=== PATIENT | female | born 1950 | race Caucasian/White ===

== ENCOUNTER → 2016-05-26 08:38 | Outpatient (CLI) | payer MEDICARE, OTHER ==
[2016-03-12 09:21] VITALS: BMI 42.0
[~2016-05-26 08:38] MED LIST: AVALIDE 150-12.1 TA1 PO; CYMBALTA60 MG PO; ROPINIROLE HCL2 MG PO; TYLENOL #4 W/CO1 TAB PO; TYLENOL W/CODEI1 TAB PO
== END | disposition home or self-care (01) ==
LOC: D.CT 08:38
DX: M54.5 Low back pain (principal)

== ENCOUNTER → 2016-12-21 00:50 | Outpatient (CLI) | payer MEDICARE, OTHER ==
[2016-03-12 09:21] VITALS: BMI 42.0
[2016-12-21 02:37] LABS: CREATININE - SERUM 1.6 mg/dL (0.6-1.3); VANCOMYCIN - TROUGH 30.2 ug/mL (10.0-20.0)
== END ==
LOC: D.LABREF 00:50
PROVIDERS: Family Medicine
DX: G06.1 Intraspinal abscess and granuloma (principal)

== ENCOUNTER → 2016-12-29 18:05 | Outpatient (CLI) | payer MEDICARE, OTHER ==
[2016-03-12 09:21] VITALS: BMI 42.0
== END | disposition home or self-care (01) ==
LOC: D.LABREF 18:05
PROVIDERS: Student in an Organized Health Care Education/Training Program
DX: R50.9 Fever, unspecified (principal)

== ENCOUNTER → 2016-12-30 11:26 | Outpatient (CLI) | payer MEDICARE, OTHER ==
[2016-03-12 09:21] VITALS: BMI 42.0
== END | disposition home or self-care (01) ==
LOC: D.US 11:00
DX: M25.511 Pain in right shoulder (principal)

== ENCOUNTER → 2016-12-31 11:03 | Outpatient (CLI) | payer MEDICARE, OTHER ==
[2016-03-12 09:21] VITALS: BMI 42.0
== END | disposition home or self-care (01) ==
LOC: D.LABREF 11:03
DX: D50.9 Iron deficiency anemia, unspecified (principal); I82.621 Acute embolism and thrombosis of deep veins of right upper extremity

== ENCOUNTER 2017-01-18 12:31 | Inpatient (IN) | payer MEDICARE, OTHER ==
[~2017-01-18 12:31] MED LIST changes: +REQUIP3 MG PO; -ROPINIROLE HCL2 MG PO
[2017-01-18 13:38] LABS: ALBUMIN 2.9 g/dL (3.4-5.0); ANION GAP 10.4 mmol/L (8-16); BILIRUBIN - TOTAL 0.36 mg/dL (0.2-1.3); CALCIUM 8.8 mg/dL (8.5-10.1); CREATININE - SERUM 1.1 mg/dL (0.6-1.3); POTASSIUM - SERUM 3.4 mmol/L (3.5-5.1); PROTEIN - SERUM 7.6 g/dL (6.4-8.2)
--- NOTE | 2017-01-18 14:00 | NUR ---
PT WAS RECEIVED FROM ADMISSION. SHE HAD BEEN TO DR LARA'S OFFICE ABD HE ADMITTED HER. SHE STATES THAT SHE DEVELOPED ABDOMINAL PAIN THIS AM. STATES HER PAIN IS ACROSS HER LOWER ABDOMEN. SHE HAS HAD BM'S SEVERAL TIMES TODAY. SOMETIMES THEY ARE FORMED, OTHER TIMES LOOSE. SHE STATES THAT THEY ARE BLACK STOOLS. SHE ALSO STATES THAT SHE HAS HAD A FEVER OF 101.6 AT 'S OFFICE, NO NAUSEA OR VOMITING. NO ENERGY. SHE IS ALSO HAVING SOME BACK APIN. NO COUGH OR CONGESTION. GEN- AWAKE AND ALERT. LUNGS- CLEAR. HEART- RRR. ABD- SOFT, WITH TENDERNESS ACROSS LOWER ABDOMEN. BS+. EXT - NO EDEMA NOTED. HER FRIEND BROUGHT HER UP HERE. [employer] IS HER ADOPTED GRANDDAUGHTER WHO LIVES WITH HER. HER PHONE NUMBER IS [phone]. PT HISTORY OBTAINED.
--- NOTE | 2017-01-18 14:30 | NUR ---
CONTACTED JOSELINE NASSAR RN TO COME START IV FOR HER. WE CANNOT USE HER R ARM DUE TO BLOOD CLOT SHE STATES.
--- NOTE | 2017-01-18 15:00 | NUR ---
PT'S IV WAS STARTED L AC WITH 22 G. IV PATENT AND SECURED BY JOSELINE NASSAR RN. IV FLUIDS WERE STARTED.
[2017-01-18 16:19] LABS: APPEARANCE CLEAR (CLEAR); BILIRUBIN NEGATIVE (NEGATIVE); COLOR YELLOW (YELLOW); GLUCOSE NEGATIVE (NEGATIVE); KETONE NEGATIVE (NEGATIVE); NITRITE NEGATIVE (NEGATIVE); PROTEIN NEGATIVE (NEGATIVE); UROBILINOGEN NORMAL (NORMAL)
[2017-01-18 16:29] VITALS: BP 145/64
[2017-01-18 16:53] VITALS: BP 142/67; BMI 37.6
--- NOTE | 2017-01-18 17:27 | NUR ---
X-RAY TO GET PT BY WHEELCHAIR AND TOOK TO X-RAY.
--- NOTE | 2017-01-18 18:39 | NUR ---
X-RAY CALLED AND STATED THAT THEY HAVE DONE CT WITHOUT CONTRAST AND DR JACKMAN ORDERED IT WITH ALSO. THEY ARE COMING BACK TO GET PT AND DO THIS WITH CONTRAST. KEPT NPO
[2017-01-18 20:00] VITALS: BP 128/55
--- NOTE | 2017-01-18 21:20 | NUR ---
SHIFT ASSESSMENT COMPLETE. PT IS COMPLAINING OF LOWER ABD PAIN AND SHE STATES THAT SHE IS VERY TIRED AT THIS TIME. SHE REQUESTS PRN PAIN MED. ADMINISTERED PRN TYLENOL. XRAY AT BEDSIDE TO TAKE PT TO CT. WILL CONT WITH POC.
--- NOTE | 2017-01-19 02:05 | NUR ---
PT RESTING PEACEFULLY WITH NO SIGNS OF ACUTE DISTRESS NOTED. FAMILY MEMBER AT BEDSIDE. WILL CONT WITH POC.
[2017-01-19 04:00] VITALS: BP 117/41
--- NOTE | 2017-01-19 04:06 | NUR ---
NO SIGNS OF ACUTE DISTRESS NOTED. WILL CONT WITH POC.
[2017-01-19 05:22] LABS: BASOPHILS 0.2 % (0-2); EOSINOPHILS 0.8 % (0-7); HEMOGLOBIN 9.5 g/dL (12-16); IMMATURE GRANULOCYTES 0.2 % (0-5); LYMPHOCYTES 9.8 % (15-50); MCH 28.6 pg (26.0-34.0); MCHC 32.8 g/dL (31.0-37.0); MCV 87.3 fL (80.0-100.0); MEAN PLATELET VOLUME 9.5 fL (7.4-10.4); MONOCYTES 5.1 % (2-11); NEUTROPHILS 83.9 % (40-80); PLATELET COUNT 279 10x3/uL (130-400); RBC 3.32 10x6/uL (4.00-5.40); WBC 14.4 10x3/uL (4.8-10.8)
[2017-01-19 05:24] LABS: ALBUMIN 2.7 g/dL (3.4-5.0); ANION GAP 13.1 mmol/L (8-16); BILIRUBIN - TOTAL 0.4 mg/dL (0.2-1.3); CALCIUM 8.9 mg/dL (8.5-10.1); CARBON DIOXIDE 26.3 mmol/L (21.0-32.0); POTASSIUM - SERUM 3.4 mmol/L (3.5-5.1); PROTEIN - SERUM 6.9 g/dL (6.4-8.2)
--- NOTE | 2017-01-19 05:51 | NUR ---
TEMP INCREASED TO 102.9 ICE PACKS UNDER ARM PITS AND GROIN, COLD WASH CLOTH PLACED ON FOREHEAD, FAN TURNED ON PT, AND TYLENOL ADMINISTERED. WILL CONT TO MONITOR.
--- NOTE | 2017-01-19 08:00 | NUR ---
PT C/O ABDOMINAL PAIN AND ALSO STATES THAT SHE DOES NOT SEEM TO BE ABLE TO URINATE EASILY. TALKED TO DR JACKMAN. SHE ORDERED A BLADDER SCAN. BLADDER SCAN DONE. IT SHOWS 268 ML'S. TOLD PT THAT WE NEED THE STOOL CULTURE SOON SHE CAN GO.
[2017-01-19] MEDS ORDERED: NEURONTIN 300300 MG PO (09:00)
--- NOTE | 2017-01-19 09:00 | NUR ---
DR JACKMAN IS HERE TO SEE PT. STOOL CULTURE AND C DIFF STILL PENDING. WITH PT'S CONTINUED DIARRHEA SHE WANTS HER ON CONTACT ISOLATION. SHE BELIEVES SHE IS GOING TO HAVE C DIFF. SHE ALSO ADDED FLAGYL FOR HER.
[2017-01-19] MEDS ORDERED: CYCLOBENZAPRINE10 MG PO (09:02)
[2017-01-19] MEDS ORDERED: XARELTO15 MG PO (09:03)
--- NOTE | 2017-01-19 09:12 | NUR ---
DR JACKMAN IS HERE TO SEE PT.
[2017-01-19 09:18] VITALS: BP 120/73
--- NOTE | 2017-01-19 10:00 | NUR ---
DR JACKMAN STATES TO HOLD XARELTO FOR NOW.
--- NOTE | 2017-01-19 10:58 | NUR ---
Patient Name: SHERRON TOM Admission Status: Elective Accout number: [id number] Admission Date: 01-18-2017 : 1950 Admission Diagnosis: Attending: MARCO A LARA Current LOS: 1 Anticipated DC Date: 01-24-2017 Planned Disposition: Home Primary Insurance: MEDICARE A & B Discharge Planning Comments: CM MET WITH PATIENT REGARDING D/C NEEDS AND PLANS. PATIENT STATED HER GRANDDAUGHTER LIVES WITH HER AND THEY HAVE NO STEPS OR STAIRS AT HOME. PATIENT STATED SHE IS INDEPENDENT WITH HER CARE AND HAS WALKER, BS COMMODE, AND CANE AT HOME IF NEEDED. PATIENTS PCP IS DR. LARA AND PHARMACY IS [facility] IN [place]. PATIENT WANTS TO WAIT AND SEE IF DOCTOR WANTS HER TO HAVE HOME HEALTH. PATIENT JUST FINISHED ROUND OF IV ABX WITH HOME HEALTH AFTER A VISIT AT [facility]. CM WILL COTNINUE TO FOLLOW PATIENT WITH D/C NEEDS AND PLANS. PCP DR[facility] IN [place] [phone] [employer] (GRANDDAUGHTER) [phone] Technical Support Internship: Melida Dinero Is the patient Alert and Oriented? Yes 0 * How many steps to enter\exit or inside your home? 0 0 * PCP DR. LARA 0 * Pharmacy [facility] IN [place] 0 * Preadmission Environment Home with Family 0 * ADLs Independent 0 * Equipment Bedside Commode Cane Walker 0 * List name and contact numbers for known caregivers / representatives who currently or will assist patient after discharge: [employer] (GRANDDAUGHTER) [phone] 0 * Community resources currently utilized None 0 * Additional services required to return to the preadmission environment? Yes 0 * Can the patient safely return to the preadmission environment? Yes 0 * Has this patient been hospitalized within the prior 30 days at any hospital? Yes 0 Grand Total: 0
--- NOTE | 2017-01-19 12:30 | NUR ---
PT IS LYING IN BED RESTING. STILL HAS DIARRHEA. STILL HAVING ABDOMINAL PAIN
[2017-01-19 12:32] VITALS: BP 146/61
[2017-01-19 13:11] LABS: APTT 29.1 SECONDS (22.8-39.4); INR 1.12 (0.85-1.17); PROTIME 14.3 SECONDS (11.6-15.0)
--- NOTE | 2017-01-19 14:00 | NUR ---
CALLED DR LARA'S OFFICE TO GET SOME PAIN MED FOR PT. SHE IS REALLY HURTING SHE STATES AND IS LYING ALL CURLED UP WITH PAIN.
--- NOTE | 2017-01-19 14:09 | NUR ---
PT IS UP TO BATHROOM. I TOLD HER THAT I CONTACTED DR LARA'S OFFICE TO OBTAIN SOME PAIN MEDICINE FOR HER.
[2017-01-19 15:14] VITALS: BMI 37.5
--- NOTE | 2017-01-19 15:30 | NUR ---
PT C/O NAUSEA. SHE VOMITED. I CALLED DR LARA'S OFFICE FOR ANTIEMETIC.
[2017-01-19 17:28] VITALS: BP 127/56
--- NOTE | 2017-01-19 18:09 | NUR ---
PTS PAIN IS IMPROVED. SHE STATES PAIN IS LIKE A 3 NOW. .SHE IS RESTING BETTER. TOLD HER HER C DIFF WAS POSITIVE.
--- NOTE | 2017-01-19 19:32 | NUR ---
RECIEVED UP IN BED WITH EYES OPEN. REMAINS IN ISOLATION D/T C-DIFF +. C/O LOWER ABD PAIN. RECIEVED PAIN MEDICATION EARLIER AND EXPLAINED IT WAS'NT TIME FOR ANOTHER ONE. ASKED HER TO TRY AND RELAX SO MEDICATION CAN WORK. VERBALLY AGREED. NS RUNNING CONTINUOUS AT 100CC/HR. IV TO LAC AND PATENT.
[2017-01-19 20:00] VITALS: BP 133/55
[2017-01-20] VITALS: BP 126/52; BP 128/52
[2017-01-20 04:00] VITALS: BP 126/52
--- NOTE | 2017-01-20 07:00 | NUR ---
RECEIVED REPORT, ASSUMED CARE OF PT. CONTACT ISOLATION PRECAUTIONS IN PLACE. PT RESTING, EASILY AROUSED. L AV IV INFUSING FLUIDS ORDERED, DRSG C/D/I. NO NEEDS VOICED AT THIS TIME. BED IN LOWEST POSITION, SIDE RAILS UP X 2, CALL LIGHT WITHIN REACH.
[2017-01-20 08:30] VITALS: BP 132/57
[2017-01-20 12:01] VITALS: BP 129/47
--- NOTE | 2017-01-20 16:01 | NUR ---
PT WITH FAMILY AT BEDSIDE, ENTERIC PRECAUTIONS IS PLACE. NO NEEDS VOICED AT THSI TIME. BED IN LOWEST POSITION, SIDE RAILS UP X 2, CALL LIGHT WITHIN REACH.,
[2017-01-20 16:13] VITALS: BP 142/85
[2017-01-20 19:49] VITALS: BP 122/44
[2017-01-21] VITALS: BP 133/61
[2017-01-21 04:00] VITALS: BP 151/64
[2017-01-21 04:46] LABS: BASOPHILS 0.1 % (0-2); EOSINOPHILS 1.3 % (0-7); HEMATOCRIT 26.7 % (36.0-48.0); IMMATURE GRANULOCYTES 0.4 % (0-5); LYMPHOCYTES 10.8 % (15-50); MCH 29.3 pg (26.0-34.0); MCHC 33.7 g/dL (31.0-37.0); MEAN PLATELET VOLUME 9.7 fL (7.4-10.4); MONOCYTES 5.1 % (2-11); NEUTROPHILS 82.3 % (40-80); PLATELET COUNT 324 10x3/uL (130-400); RBC 3.07 10x6/uL (4.00-5.40); RDW 15.3 % (11.5-14.5); WBC 17.4 10x3/uL (4.8-10.8)
[2017-01-21 05:07] LABS: ALBUMIN 2.1 g/dL (3.4-5.0); ALKALINE PHOSPHATASE 116 U/L (46-116); ALT (SGPT) 7 U/L (10-68); BILIRUBIN - TOTAL 0.29 mg/dL (0.2-1.3); CALC OSMOLALITY 271 mosm/kg (275-300); CALCIUM 7.9 mg/dL (8.5-10.1); CARBON DIOXIDE 22.2 mmol/L (21.0-32.0); CHLORIDE - SERUM 104 mmol/L (98-107); CREATININE - SERUM 0.8 mg/dL (0.6-1.3); GLUCOSE 103 mg/dL (74-106); POTASSIUM - SERUM 3.2 mmol/L (3.5-5.1); PROTEIN - SERUM 5.3 g/dL (6.4-8.2); SODIUM 136 mmol/L (136-145); UREA NITROGEN 13 mg/dL (7-18); eGFR NON AFRICAN AMERICAN 76 mL/min (90-120)
--- NOTE | 2017-01-21 07:45 | NUR ---
PT ASSESSMENT COMPLETE AWAKE AND ALERT ORINETD X 3 LUNGS CLAER BILATERAL HAS TENDER AND DISTENDED ABDOMEN. IN CONTACT ISOLATION FOR C DIFF TREATMENT PIV LEAKING STOPPED AT THIS TIME. WILL RESITE. UP AD ANGELA NO DISTRESS NOTED.
[2017-01-21 07:50] VITALS: BP 151/64
--- NOTE | 2017-01-21 08:57 | NUR ---
PATIENT UP TO SINK WASHING HANDS AT THIS TIME. NO COMPLAINTS OR SIGNS OF DISTRESS. DENIES ANY NEEDS AT THIS TIME. IV INTACT. CALL LIGHT WITHIN REACH.
--- NOTE | 2017-01-21 09:52 | NUR ---
PT IV RESITED TO LEFT INNER FORARM 22 GA X 1 STICK TOLERATED WELL. IV TO LEFT AC LEAKING AND UNABLE TO GIVE BLOOD RETURN REMOVED TIP INTACT. PT TOLERATED LIQUID VANCOMYCIN IN YOGURT. WILL MONITOR.
[2017-01-21 12:03] VITALS: BP 164/55
--- NOTE | 2017-01-21 13:45 | NUR ---
NUTRITION F/U CHART REVIEWED. PT REMAINS IN ISOLATION. 25 TO 50% INTAKE RECENT FULL LIQUID MEALS. WILL MONITOR DIET ADVANCEMENT, PO INTAKE. RD FOLLOWING
[2017-01-21 16:16] VITALS: BP 157/58
[2017-01-21 20:00] VITALS: BP 100/64
[2017-01-22] VITALS: BP 107/43
[2017-01-22 04:19] LABS: BASOPHILS 0.2 % (0-2); EOSINOPHILS 3.6 % (0-7); HEMATOCRIT 26.6 % (36.0-48.0); HEMOGLOBIN 8.8 g/dL (12-16); IMMATURE GRANULOCYTES 0.4 % (0-5); LYMPHOCYTES 14.6 % (15-50); MCH 28.8 pg (26.0-34.0); MCHC 33.1 g/dL (31.0-37.0); MCV 86.9 fL (80.0-100.0); MEAN PLATELET VOLUME 9.5 fL (7.4-10.4); MONOCYTES 5.2 % (2-11); PLATELET COUNT 355 10x3/uL (130-400); RBC 3.06 10x6/uL (4.00-5.40); RDW 15.3 % (11.5-14.5)
[2017-01-22 04:21] VITALS: BP 132/59
[2017-01-22 04:24] LABS: WBC 12.1 10x3/uL (4.8-10.8)
[2017-01-22 04:39] LABS: ALBUMIN 1.9 g/dL (3.4-5.0); ALKALINE PHOSPHATASE 100 U/L (46-116); ALT (SGPT) 7 U/L (10-68); BILIRUBIN - TOTAL 0.11 mg/dL (0.2-1.3); CALC OSMOLALITY 279 mosm/kg (275-300); CALCIUM 7.9 mg/dL (8.5-10.1); CARBON DIOXIDE 22.2 mmol/L (21.0-32.0); CHLORIDE - SERUM 107 mmol/L (98-107); CREATININE - SERUM 0.7 mg/dL (0.6-1.3); GLUCOSE 110 mg/dL (74-106); POTASSIUM - SERUM 3.4 mmol/L (3.5-5.1); PROTEIN - SERUM 4.8 g/dL (6.4-8.2); SODIUM 140 mmol/L (136-145); UREA NITROGEN 13 mg/dL (7-18); eGFR NON AFRICAN AMERICAN 89 mL/min (90-120)
--- NOTE | 2017-01-22 04:41 | NUR ---
ASSESSED AT THE BEGINNING OF THE SHIFT. PT IS ALERT AND ORIENTED, ABLE TO VERBALIZE NEEDS. SHE IS ABLE TO GET UP TO THE BATHROOM AD ANGELA AND TURN FOR COMFORT IN BED. SHE REMAINS IN CONTACT ISOLATION FOR C-DIFF AND HER RIGHT ARM IS RESERVED DUE TO A ABLOOD CLOT. THE BED IS LOW, RAILS UP X'S 2 WITH THE CALL LIGHT AT HAND. SHE HAS RECEIVED PRN DRUGS ORDERED AND IS RESTING QUIET AT THIS TIME.
--- NOTE | 2017-01-22 09:05 | NUR ---
PATIENT ALERT IN LOW ROWAN POSITION. NO SIGNS OF DISTRESS NOTED. SIDE RAILS UP X2. BED IN LOW POSITION. CALL LIGHT IN REACH.
[2017-01-22 09:24] VITALS: BP 149/66
[2017-01-22 12:49] VITALS: BP 156/60
[2017-01-22 20:02] VITALS: BP 139/63
[2017-01-22 23:51] VITALS: BP 133/46
[2017-01-23 04:02] VITALS: BP 137/52
[2017-01-23 04:43] LABS: BASOPHILS 0.3 % (0-2); EOSINOPHILS 4.2 % (0-7); HEMOGLOBIN 8.7 g/dL (12-16); IMMATURE GRANULOCYTES 0.3 % (0-5); LYMPHOCYTES 22.3 % (15-50); MCH 28.2 pg (26.0-34.0); MCHC 32.2 g/dL (31.0-37.0); MCV 87.7 fL (80.0-100.0); MEAN PLATELET VOLUME 9.5 fL (7.4-10.4); MONOCYTES 6.7 % (2-11); NEUTROPHILS 66.2 % (40-80); PLATELET COUNT 387 10x3/uL (130-400); RBC 3.08 10x6/uL (4.00-5.40); RDW 15.4 % (11.5-14.5); WBC 7.8 10x3/uL (4.8-10.8)
[2017-01-23 05:04] LABS: ALKALINE PHOSPHATASE 76 U/L (46-116); ALT (SGPT) 8 U/L (10-68); CALC OSMOLALITY 278 mosm/kg (275-300); CALCIUM 8.1 mg/dL (8.5-10.1); CARBON DIOXIDE 24.1 mmol/L (21.0-32.0); CHLORIDE - SERUM 107 mmol/L (98-107); CREATININE - SERUM 0.7 mg/dL (0.6-1.3); GLUCOSE 114 mg/dL (74-106); MAGNESIUM - SERUM 1.3 mg/dL (1.8-2.4); PHOSPHOROUS 3.5 mg/dL (2.5-4.9); PROTEIN - SERUM 4.9 g/dL (6.4-8.2); SODIUM 140 mmol/L (136-145); eGFR NON AFRICAN AMERICAN 89 mL/min (90-120)
[2017-01-23 05:07] LABS: UREA NITROGEN 9 mg/dL (7-18)
--- NOTE | 2017-01-23 07:50 | NUR ---
A&O, DENIES NEEDS, NO DISTRESS NOTED, BED LOWEST POSITION, CALL LIGHT IN REACH, WILL CONINTUE TO MONITOR
[2017-01-23 08:38] VITALS: BP 150/69
[2017-01-23 12:08] VITALS: BP 135/49
[2017-01-23 12:30] LABS: POTASSIUM - SERUM 3.4 mmol/L (3.5-5.1)
[2017-01-23 12:31] LABS: MAGNESIUM - SERUM 2.3 mg/dL (1.8-2.4)
[2017-01-23 16:16] VITALS: BP 132/54
--- NOTE | 2017-01-23 19:15 | NUR ---
RECEIVED CARE FROM DAY NURSE. PT REQUEST PAIN MEDS. NOT DUE AT THIS TIME. PT REPORTS BACK PAIN FROM BED. NEW RECLINING CHAIR BROUGHT TO ROOM TO SEE IF CHANGE OF POSITION WOULD HELP. PT LATER DID REPORT IMPROVEMENT IN DISCOMFORT.
[2017-01-23 19:55] VITALS: BP 151/70
[2017-01-23 23:47] VITALS: BP 137/51
--- NOTE | 2017-01-24 00:24 | NUR ---
PATIENT RESTING WITH EYES CLOSED AND NO VISIBLE SIGNS OF DISTRESS. BED IN LOWEST POSITION AND CALL LIGHT WITHIN REACH.
--- NOTE | 2017-01-24 02:57 | NUR ---
RESTING IN BED ON SIDE. EYES CLOSED. RESP EVEN AND UNLABORED. IV INFUSING PER ORDER. CALL LIGHT AT SIDE.
[2017-01-24 04:01] VITALS: BP 165/65
[2017-01-24 05:05] LABS: BASOPHILS 0.4 % (0-2); EOSINOPHILS 2.6 % (0-7); HEMATOCRIT 27.9 % (36.0-48.0); IMMATURE GRANULOCYTES 0.5 % (0-5); LYMPHOCYTES 27.8 % (15-50); MCH 28.2 pg (26.0-34.0); MCHC 32.3 g/dL (31.0-37.0); MCV 87.5 fL (80.0-100.0); MEAN PLATELET VOLUME 9.4 fL (7.4-10.4); MONOCYTES 7.5 % (2-11); NEUTROPHILS 61.2 % (40-80); PLATELET COUNT 425 10x3/uL (130-400); RBC 3.19 10x6/uL (4.00-5.40); RDW 15.6 % (11.5-14.5); WBC 7.4 10x3/uL (4.8-10.8)
[2017-01-24 05:28] LABS: ALBUMIN 2.1 g/dL (3.4-5.0); ALKALINE PHOSPHATASE 73 U/L (46-116); ALT (SGPT) 7 U/L (10-68); CALCIUM 8.3 mg/dL (8.5-10.1); CARBON DIOXIDE 24.1 mmol/L (21.0-32.0); CHLORIDE - SERUM 108 mmol/L (98-107); CREATININE - SERUM 0.7 mg/dL (0.6-1.3); GLUCOSE 114 mg/dL (74-106); MAGNESIUM - SERUM 1.9 mg/dL (1.8-2.4); PHOSPHOROUS 3.3 mg/dL (2.5-4.9); POTASSIUM - SERUM 3.3 mmol/L (3.5-5.1); PROTEIN - SERUM 5.3 g/dL (6.4-8.2); SODIUM 141 mmol/L (136-145); eGFR NON AFRICAN AMERICAN 89 mL/min (90-120)
[2017-01-24 05:33] LABS: CALC OSMOLALITY 279 mosm/kg (275-300); UREA NITROGEN 6 mg/dL (7-18)
[2017-01-24 08:44] VITALS: BP 166/54
--- NOTE | 2017-01-24 11:24 | NUR ---
PT SEEN FOR SECOND BUTLER NOTE-STILL COMPLAINTS OF LOWER BACK PAIN-STATES PAIN MED NOT STRONG ENOUGH. DR VARGAS INFORMED-PAIN MED ORDERS CHANGED. ICE PACK GIVEN TO PATIENT FOR COMFORT. UP IN ROOM. CALL LIGHT IN REACH
[2017-01-24 12:40] VITALS: BP 160/54
--- NOTE | 2017-01-24 19:40 | NUR ---
RECIEVED SHIFT REPORT. PT IS LYING IN BED. ALERT AND ORIENTED AND ABLE TO VERBALIZE NEEDS. IV IS PATENT AND FLUIDS ARE RUNNING PER ORDER. PT IS AMBULATORY BUT WAS INSTRUCTED TO CALL FOR ANY ASSISTANCE NEEDED. PT STATES PAIN IS 8/10. ISOLATION PRECAUTIONS ARE IN PLACE. NO NEEDS ARE VOICED. VISITOR IS AT THE BEDSIDE. WILL CONTINUE TO MONITOR. SIDE RAILS ARE UP X 2. BED IS IN LOWEST POSITION. CALL LIGHT IS WITHIN REACH.
[2017-01-24 20:00] VITALS: BP 167/55
--- NOTE | 2017-01-24 20:55 | NUR ---
SHIFT ASSESSMENT COMPLETED. NIGHT MEDS GIVEN WITH NO PROBLEMS. PT C/O PAIN 11/18. ADMINISTERED PRESCRIBED PRN TYLENOL WITH CODEINE PER ORDER. DENIES FURTHER NEEDS. WILL MONITOR. ISOLATION PRECAUTIONS IN PLACE. VISITOR AT BEDSIDE. SIDE RAILS X 2. BED LOW. CALL LIGHT IN REACH.
[2017-01-25] VITALS: BP 166/53
[2017-01-25 04:00] VITALS: BP 155/60
[2017-01-25 04:16] LABS: BASOPHILS 0.3 % (0-2); EOSINOPHILS 2.3 % (0-7); HEMATOCRIT 28.3 % (36.0-48.0); HEMOGLOBIN 9.2 g/dL (12-16); IMMATURE GRANULOCYTES 0.6 % (0-5); LYMPHOCYTES 28.7 % (15-50); MCH 28.7 pg (26.0-34.0); MCHC 32.5 g/dL (31.0-37.0); MCV 88.2 fL (80.0-100.0); MONOCYTES 5.9 % (2-11); NEUTROPHILS 62.2 % (40-80); PLATELET COUNT 432 10x3/uL (130-400); RBC 3.21 10x6/uL (4.00-5.40); RDW 15.6 % (11.5-14.5)
[2017-01-25 04:32] LABS: ALBUMIN 1.9 g/dL (3.4-5.0); ALKALINE PHOSPHATASE 70 U/L (46-116); CARBON DIOXIDE 26.2 mmol/L (21.0-32.0); CHLORIDE - SERUM 109 mmol/L (98-107); CREATININE - SERUM 0.8 mg/dL (0.6-1.3); GLUCOSE 109 mg/dL (74-106); POTASSIUM - SERUM 3.5 mmol/L (3.5-5.1); SODIUM 142 mmol/L (136-145); eGFR NON AFRICAN AMERICAN 76 mL/min (90-120)
[2017-01-25 04:36] LABS: ALT (SGPT) 12 U/L (10-68); BILIRUBIN - TOTAL 0.08 mg/dL (0.2-1.3); CALC OSMOLALITY 282 mosm/kg (275-300); UREA NITROGEN 9 mg/dL (7-18)
--- NOTE | 2017-01-25 07:00 | NUR ---
PT REC'D FROM DARRELL MCKAY. SITTING UP IN CHAIR AT BEDSIDE. AAOX4. ENTERIC ISOLATION PRECAUTIONS IN USE. DELIVERED BREAKFAST TRAY. REGULAR HEART RATE AND RHYTHM. LUNG SOUNDS CLEAR AND EQUAL BILAT. BOWEL SOUNDS ACTIVE X4 QUADS. NO COMPLAINTS OF PAIN. DENEIS NEEDS. CPOC.
[2017-01-25] MEDS ORDERED: VANCOMYCIN250 MG/51 PO (07:13)
[2017-01-25] MEDS ORDERED: FLAGYL500 MG PO (07:13)
[2017-01-25 09:06] VITALS: BP 157/66
--- NOTE | 2017-01-25 09:07 | NUR ---
Patient being discharged home today, and stated that she did not think that she needs home health. Patient said her granddaughter is there to help her, but she is very independent with her care. IMM signed CM will continue to assist as needed
--- NOTE | 2017-01-25 10:17 | NUR ---
MORNING MEDS PASSED AT THIS TIME. DISCHARGE INSTRUCTIONS DISCUSSED WELL. NO QUESTIONS OR CONCERNS VOICED. PAPER PRESCRIPTIONS PROVIDED. PIV TO Hermann DONNELLY DC'Damion WITH CATHETER INTACT. PRESSURE AND DRESSING APPLIED. ESCORTED OUT VIA WC.
== END 2017-01-25 10:18 | disposition home or self-care (01) | DRG 372 ==
LOC: D.MS 12:31
PROVIDERS: Family Medicine Adult Medicine; Radiology Diagnostic Radiology; ADMIT Family Medicine
DX: A04.72 Enterocolitis due to Clostridium difficile, not specified as recurrent (principal); I82.621 Acute embolism and thrombosis of deep veins of right upper extremity; I10 Essential (primary) hypertension; G89.29 Other chronic pain; M54.5 Low back pain; D64.9 Anemia, unspecified

== ENCOUNTER 2017-02-01 16:32 | Emergency (ER) | payer MEDICARE, OTHER ==
[~2017-02-01 16:32] MED LIST changes: +CYCLOBENZAPRINE10 MG PO; +FLAGYL500 MG PO; +NEURONTIN 300300 MG PO; +VANCOMYCIN250 MG/51 PO; +XARELTO15 MG PO
[2017-02-01 17:02] LABS: BASOPHILS 0.4 % (0-2); EOSINOPHILS 0.7 % (0-7); HEMATOCRIT 34.8 % (36.0-48.0); HEMOGLOBIN 11.5 g/dL (12-16); IMMATURE GRANULOCYTES 0.2 % (0-5); LYMPHOCYTES 20.7 % (15-50); MCV 87.9 fL (80.0-100.0); MEAN PLATELET VOLUME 9.2 fL (7.4-10.4); MONOCYTES 6.8 % (2-11); NEUTROPHILS 71.2 % (40-80); RBC 3.96 10x6/uL (4.00-5.40); WBC 8.9 10x3/uL (4.8-10.8)
[2017-02-01 17:05] LABS: PLATELET COUNT 600 10x3/uL (130-400)
[2017-02-01 17:10] LABS: INR 2.02 (0.85-1.17); PROTIME 22.8 SECONDS (11.6-15.0)
[2017-02-01 17:24] LABS: ALBUMIN 2.9 g/dL (3.4-5.0); ANION GAP 13.6 mmol/L (8-16); BILIRUBIN - TOTAL 0.31 mg/dL (0.2-1.3); CALCIUM 9.6 mg/dL (8.5-10.1); CARBON DIOXIDE 28.3 mmol/L (21.0-32.0); CREATININE - SERUM 0.9 mg/dL (0.6-1.3); POTASSIUM - SERUM 3.9 mmol/L (3.5-5.1); PROTEIN - SERUM 7.2 g/dL (6.4-8.2)
[2017-02-01 17:27] LABS: APPEARANCE CLEAR (CLEAR); BACTERIA FEW /hpf (NONE SEEN); BILIRUBIN NEGATIVE (NEGATIVE); COLOR YELLOW (YELLOW); EPITHELIAL CELLS 0-5 /hpf (0-5); GLUCOSE NEGATIVE (NEGATIVE); KETONE NEGATIVE (NEGATIVE); NITRITE NEGATIVE (NEGATIVE); PROTEIN NEGATIVE (NEGATIVE); RED CELLS - URINE OCC /hpf (0-5); UROBILINOGEN NORMAL (NORMAL); WHITE CELLS - URINE 0-5 /hpf (0-5)
[2017-02-01 17:29] LABS: UDS - AMPHET NEGATIVE QUAL (NEGATIVE); UDS - BARB NEGATIVE QUAL (NEGATIVE); UDS - BENZO NEGATIVE QUAL (NEGATIVE); UDS - COCAINE NEGATIVE QUAL (NEGATIVE); UDS - OPIATE NEGATIVE QUAL (NEGATIVE); UDS - PCP NEGATIVE QUAL (NEGATIVE); UDS - THC NEGATIVE QUAL (NEGATIVE)
== END 2017-02-01 21:43 | disposition home or self-care (01) ==
LOC: D.ER 16:32
PROVIDERS: Emergency Medicine; Nurse Practitioner Family
DX: K52.9 Noninfective gastroenteritis and colitis, unspecified (principal); R19.7 Diarrhea, unspecified; Z51.81 Encounter for therapeutic drug level monitoring; Z79.2 Long term (current) use of antibiotics

== ENCOUNTER 2017-02-02 14:27 | Inpatient (IN) | payer MEDICARE, OTHER ==
--- NOTE | 2017-02-02 15:00 | NUR ---
PT RECEIVED TO ROOM FROM ADMISSIONS. RR EVEN AND UNLABORED, FAMILY AT BEDISDE. NO SIGNS OF DISTRESS NOTED. PT REPORTS HAVING FREQUENT BMS, WILL PLACE ON CONTACT ISOLATION FOR HX OF C-DIFF. WILL AWAIT ORDERS, WILL CTM AND COMPLETE MED REC, ADMISSION HX AND ASSESSMENT.
[2017-02-02 15:30] VITALS: BP 116/63; BMI 35.5
--- NOTE | 2017-02-02 15:30 | NUR ---
EDUCATED PT ON PURPOSE OF SCD. PT REFUSED TO WEAR SCDS. PT GETS UP AD ANGELA. WILL CTM.
[2017-02-02 16:08] LABS: BASOPHILS 0.4 % (0-2); EOSINOPHILS 1.3 % (0-7); HEMATOCRIT 31.9 % (36.0-48.0); HEMOGLOBIN 10.2 g/dL (12-16); IMMATURE GRANULOCYTES 0.1 % (0-5); LYMPHOCYTES 26.8 % (15-50); MCH 28.8 pg (26.0-34.0); MEAN PLATELET VOLUME 9.1 fL (7.4-10.4); MONOCYTES 7.1 % (2-11); NEUTROPHILS 64.3 % (40-80); PLATELET COUNT 534 10x3/uL (130-400); RBC 3.54 10x6/uL (4.00-5.40); WBC 7.5 10x3/uL (4.8-10.8)
[2017-02-02 16:11] LABS: MCV 90.1 fL (80.0-100.0)
--- NOTE | 2017-02-02 17:20 | NUR ---
UNABLE TO OBTAIN IV ACCESS. JOSELINE NASSAR VASCULAR RN WAS UNABLE TO OBTAIN IV ACCESS. RECOMENDED PICC LINE.
--- NOTE | 2017-02-02 17:35 | NUR ---
SPOKE TO DR. LARA REGARDING NO IV ACCESS. GAVE TELEPHONE ORDER FOR PICC LINE PLACEMENT. WILL RELAY INFORMATION TO JOSELINE NASSAR RN. WILL CTM.
--- NOTE | 2017-02-02 18:30 | NUR ---
PT RESTING QUILETY, RR EVEN AND UNLABORED. PT DENIES NEEDS AT THIS TIME. PICC LINE HAS BEEN SUCCESSFULLY INSERTED. WILL GIVE REPORT ON PT CONDTION FOR THE DAY.
[2017-02-02 18:42] LABS: APPEARANCE CLEAR (CLEAR); COLOR YELLOW (YELLOW)
[2017-02-02 18:43] LABS: BILIRUBIN NEGATIVE (NEGATIVE); EPITHELIAL CELLS 0-5 /hpf (0-5); GLUCOSE NEGATIVE (NEGATIVE); KETONE NEGATIVE (NEGATIVE); NITRITE NEGATIVE (NEGATIVE); PROTEIN NEGATIVE (NEGATIVE); RED CELLS - URINE OCC /hpf (0-5); UROBILINOGEN NORMAL (NORMAL); WHITE CELLS - URINE 0-5 /hpf (0-5)
[2017-02-02 18:44] LABS: BACTERIA FEW /hpf (NONE SEEN)
[2017-02-02 22:06] VITALS: BP 146/55
[2017-02-03 01:06] VITALS: BP 141/49
--- NOTE | 2017-02-03 05:16 | NUR ---
CALL LIGHT IN REACH, WILL CONTINUE WITH PLAN OF CARE.
[2017-02-03 05:27] LABS: BASOPHILS 0.3 % (0-2); EOSINOPHILS 1.4 % (0-7); HEMATOCRIT 27.3 % (36.0-48.0); HEMOGLOBIN 8.7 g/dL (12-16); IMMATURE GRANULOCYTES 0.3 % (0-5); LYMPHOCYTES 30.1 % (15-50); MCH 28.9 pg (26.0-34.0); MCHC 31.9 g/dL (31.0-37.0); MCV 90.7 fL (80.0-100.0); MONOCYTES 6.9 % (2-11); PLATELET COUNT 497 10x3/uL (130-400); RBC 3.01 10x6/uL (4.00-5.40); WBC 6.2 10x3/uL (4.8-10.8)
--- NOTE | 2017-02-03 06:09 | NUR ---
PATIENT RESTING WELL IN BED, FAMILY AT BEDSIDE. CALL LIGHT WITHIN REACH
[2017-02-03 06:17] VITALS: BP 114/52
--- NOTE | 2017-02-03 07:43 | NUR ---
ROUNDING DONE WITH PATIENT IN ENTERIC ISOLATION WITH NEGATIVE C DIFF CULTURE. LEFT UPPER ARM PICC SEEN WITH NS INFUSING AT 100 CC/HR. PATIENT IS UP AD ANGELA IN ROOM. WILL CONTINUE TO FOLLOW.
[2017-02-03 08:00] VITALS: BP 154/74
--- NOTE | 2017-02-03 09:59 | NUR ---
PERMITS SIGNED FOR COLONOSCOPY WITH TIVA FOR TOMORROW.
[2017-02-03 11:12] VITALS: BMI 35.4
[2017-02-03 12:00] VITALS: BP 145/66
--- NOTE | 2017-02-03 15:49 | NUR ---
COMPLAINTS OF BACK PAIN, 11/18. DILAUDID 1 MG GIVEN SLOW IVP PAST DILUTION WITH 5 CC NS
[2017-02-03 16:00] VITALS: BP 168/52
--- NOTE | 2017-02-03 17:04 | NUR ---
STILL ON CLEAR LIQUIDS AT THIS TIME. WILL START GI PREP AT 1800 ORDERED.
--- NOTE | 2017-02-03 19:37 | NUR ---
PT SITTING UP IN BED PLAYING CARDS WITH FAMILY. DENIES NEEDS AT THIS TIME.
[2017-02-03 20:24] VITALS: BP 177/67
--- NOTE | 2017-02-03 23:09 | NUR ---
CALL LIGHT IN REACH, WILL CONTINUE WITH PLAN OF CARE.
[2017-02-04 00:12] VITALS: BP 151/57
[2017-02-04 05:17] VITALS: BP 118/66; BP 144/51
--- NOTE | 2017-02-04 07:19 | NUR ---
0700-AM ROUNDING WITH PATIENT APPEARING ASLEEP. RESP ARE EVEN AND NON LABORED. NPO STATUS FOR PROCEDURE TODAY. LEFT UPPER ARM PICC WITH NS INFUSING AT 100 CC/HR. IN ENTERIC ISOLATION. STRICT INTAKE AND OUTPUT. WILL MONITOR.
[2017-02-04 07:40] LABS: BASOPHILS 0.3 % (0-2); EOSINOPHILS 1.2 % (0-7); HEMATOCRIT 27.6 % (36.0-48.0); HEMOGLOBIN 8.9 g/dL (12-16); IMMATURE GRANULOCYTES 0.2 % (0-5); LYMPHOCYTES 29.3 % (15-50); MCH 28.8 pg (26.0-34.0); MCHC 32.2 g/dL (31.0-37.0); MCV 89.3 fL (80.0-100.0); MONOCYTES 5.6 % (2-11); NEUTROPHILS 63.4 % (40-80); PLATELET COUNT 500 10x3/uL (130-400); RBC 3.09 10x6/uL (4.00-5.40); RDW 15.9 % (11.5-14.5); WBC 5.8 10x3/uL (4.8-10.8)
[2017-02-04 07:55] LABS: ALBUMIN 2.3 g/dL (3.4-5.0); ALKALINE PHOSPHATASE 69 U/L (46-116); ALT (SGPT) 11 U/L (10-68); BILIRUBIN - TOTAL 0.15 mg/dL (0.2-1.3); CALC OSMOLALITY 277 mosm/kg (275-300); CALCIUM 7.8 mg/dL (8.5-10.1); CARBON DIOXIDE 32.1 mmol/L (21.0-32.0); CHLORIDE - SERUM 104 mmol/L (98-107); CREATININE - SERUM 0.8 mg/dL (0.6-1.3); GLUCOSE 106 mg/dL (74-106); POTASSIUM - SERUM 3.2 mmol/L (3.5-5.1); PROTEIN - SERUM 5.5 g/dL (6.4-8.2); SODIUM 140 mmol/L (136-145); UREA NITROGEN 11 mg/dL (7-18); eGFR NON AFRICAN AMERICAN 76 mL/min (90-120)
[2017-02-04 08:22] VITALS: BP 164/54
--- NOTE | 2017-02-04 10:30 | NUR ---
EKG DONE ORDERED. STILL NPO
--- NOTE | 2017-02-04 11:14 | NUR ---
COMPLAINTS OF PAIN TO BACK 10, ALSO NAUSEA. NO ZOFRAN ON EMAR. CALL PLACED TO DR LARA OFFICE. DILAUDID 1 MG GIVEN SLOW IVP WITH 5 CC NS DILUTION.
--- NOTE | 2017-02-04 12:03 | NUR ---
PRE-OP MEDS GIVEN. CHANGED INTO A HOSPITAL GOWN. STILL NPO,
[2017-02-04 12:39] VITALS: BP 173/69
--- NOTE | 2017-02-04 13:50 | NUR ---
TO GI LAB VIA BED.
--- NOTE | 2017-02-04 15:03 | NUR ---
SPOKE WITH JOSÉ MIGUEL IN PHARMACY ABOUT THE ORDER FOR DIFICID PER THE CASE MANAGEMENT ORDER FROM DR KAT. HE PLACED ME ON HOLD AND CAME BACK TO STATE THAT THE ONLY WAY THIS MEDICATION WOULD BE APPROVED IS FOR THE ID DOCTOR TO APPROVE IT. WILL CONTACT DR JACKMAN WHO IS ON THE CASES.
--- NOTE | 2017-02-04 15:43 | NUR ---
1530-RECEIVED BACK FROM GI LAB, IV FLUIDS HOOKED BACK TO LEFT UPPER ARM PICC. FAMILY AT BEDSIDE. WILL MONITOR.
--- NOTE | 2017-02-04 16:26 | NUR ---
PATIENT TO REPORT THAT HER HEADACHE IS MUCH BETTER THIS AFTERNOON. DENIES ANY NEEDS AT PRESENT TIME.
--- NOTE | 2017-02-04 16:54 | NUR ---
Patient Name: SHERRON TOM Admission Status: Urgent Accout number: [id number] Admission Date: 02-02-2017 : 1950 Admission Diagnosis: Attending: MARCO A LARA Current LOS: 2 Anticipated DC Date: Planned Disposition: Primary Insurance: MEDICARE A & B Discharge Planning Comments: CM RECEIVED ORDER FOR APPROVAL OF NON FORMULARY MEDICATION: DIFICID 200MG BID X10 DAYS. CM PAGED AND SPOKE TO DR. KAT TO CLAIFY THAT THIS IS REQUESTED FOR HOSPITAL ADMINISTRATION. LYDIA CALLED AND RECEIVED GUIDANCE FROM DIRECTOR MELISSA TO CALL PHARMACY MEDIA ANALYTICS MANAGER. RN LYDIA FLORES CALLED AND SPOKE TO PHARMACY AND ADVISED CM THAT DR. JACKMAN WOULD HAVE TO APPROVE THIS MEDICATION FOR USE IN HOSPITAL. CM SPOKE TO DR. JACKMAN AT NURSES STATION WHO INFORMED CM THAT SHE MAY CONSIDER DIFICID IF COLONOSCOPY PATHOLOGY SHOWS CDIFF AND SHE WILL FOLLOW THE RESULTS. CM NOTIFIED DR. KAT. CM TO FOLLOW AND ASSIST NEEDED. High School Computer Science Teacher: Jenaro Rucker
--- NOTE | 2017-02-04 17:15 | NUR ---
PATIENT TO COMPLAIN OF SLIGHT NAUSEA. NO ZOFRAN ON EMAR AND PATIENT STATES DR KAT SAID HE WOULD ORDER SOME. PAGE INTO DR KAT TO SEE ABOUT MEDICATION. AWAITING CALL BACK.
--- NOTE | 2017-02-04 17:26 | NUR ---
RECEIVED CALL BACK FROM DR KAT. NEW ORDERS RECIEVED.
--- NOTE | 2017-02-04 19:30 | NUR ---
PT IN BED WATCHING TELEVISION. DENIES NEEDS AT THIS TIME.
[2017-02-04 21:06] VITALS: BP 139/66
[2017-02-05 00:34] VITALS: BP 130/58
[2017-02-05 04:00] VITALS: BP 132/83
--- NOTE | 2017-02-05 05:34 | NUR ---
RESTING ATT, RR EVEN AND UNLABORED, NO S&S OF ACUTE DISTRESS NOTED. BED LOW AND LOCKED, CALL LIGHT IN REACH. WILL CPOC.
--- NOTE | 2017-02-05 07:26 | NUR ---
AM ROUNDS- PT IN BED, WITH EYES CLOSED, RESP EVEN AND UNLABORED. LT ARM PICC INFUSING NS AT 100CC/HR. BED LOW AND WHEELS LOCKED, BEDSIDE RAILS X2, FAMILY AT BEDSIDE, CALL LIGHT IN REACH, NAD NOTED, WILL CONTINUE TO MONITOR.
[2017-02-05 08:00] VITALS: BP 165/84
--- NOTE | 2017-02-05 08:46 | NUR ---
AM MEDS GIVEN ALSO ADMINISTERED 1MG OF DILAUDID FOR PAIN LEVEL OF 8/10 AND 8MG OF ZOFRAN PER PT REQUEST. PT DENIES ANY OTHER NEEDS AT THIS TIME. DR. LARA FIXING TO COME INTO ROOM. CALL LIGHT IN REACH, NAD NOTED, WILL CONTINUE TO MONITOR.
--- NOTE | 2017-02-05 13:23 | NUR ---
PT IN BED, TALKING WITH GRANDDAUGHTER. WANTS TO GET IN THE SHOWER, WILL HAVE INSTRUMENT REPAIR SPECIALIST GET SUPPLIES NEEDED FOR SHOWER. PT DENIES ANY OTHER NEEDS AT THIS TIME. CALL LIGHT IN REACH, NAD NOTED, WILL CONTINUE TO MONITOR.
--- NOTE | 2017-02-05 14:48 | NUR ---
ADMINISTERED 1MG OF DILAUDID FOR PAIN LEVEL OF 8/10. PT IN BED, ON HER TABLET, DENIES ANY OTHER NEEDS AT THIS TIME. CALL LIGHT IN REACH, NAD NOTED, WILL CONTINUE TO MONITOR.
[2017-02-05 16:00] VITALS: BP 152/77
--- NOTE | 2017-02-05 18:34 | NUR ---
ADMINISRERED 1MG OF DILAUDID FOR PAIN LEVEL OF 8/10. PT IN BED, WATCHING TV, DENIES ANY OTHER NEEDS AT THIS TIME. CALL LIGHT IN REACH, NAD NOTED, WILL CONTINUE TO MONITOR.
--- NOTE | 2017-02-05 19:47 | NUR ---
RECEIVED REPORT, WILL ASSUME CARE OF PT, DENIES ANY NEEDS, BED IS LOW,CALL LIGHT IN REACH, WILL CONTINUE PLAN OF CARE
[2017-02-05 21:24] VITALS: BP 160/75
--- NOTE | 2017-02-05 22:43 | NUR ---
COMPLAINS OF PAIN, GAVE DIDULID ORDER
[2017-02-06] VITALS (7 sets, daily range): BP systolic 145–189; BP diastolic 63–87
--- NOTE | 2017-02-06 02:55 | NUR ---
COMPLAINS OF PAIN, GAVE DIDULDID ORDER
--- NOTE | 2017-02-06 04:47 | NUR ---
ASSESSMENT COMPLETE, SEE FLOW SHEET, PT SLEEPING, CALL LIGHT IN REACH, WILL CONTINUE PLAN OF CARE
--- NOTE | 2017-02-06 09:19 | NUR ---
AM MEDS GIVEN AT THIS TIME. ALSO ADMINISTERED 1MG OF DILAUDID FOR PAIN LEVEL OF 7/10. PT DENIES ANY OTHER NEEDS AT THIS TIME. CALL LIGHT IN REACH, NAD NOTED, WILL CONTINUE TO MONITOR.
--- NOTE | 2017-02-06 13:37 | NUR ---
ADMINISTERED 1MG OF DILAUDID FOR PAIN LEVEL OF 7/10. PT IN BED, WATCHING TV, DENIES ANY OTHER NEEDEDS AT THIS TIME. CALL LIGHT IN REACH, NAD NOTED, WILL CONTINUE TO MONITOR.
--- NOTE | 2017-02-06 17:29 | NUR ---
ADMINISTERED 1MG OF DILAUDID FOR PAIN LEVEL OF 6/10. PT IN BED, WATCHING TV, DENIES ANY OTHER NEEDS AT THIS TIME. CALL LIGHT IN REACH, NAD NOTED, WILL CONTINUE TO MONITOR.
--- NOTE | 2017-02-06 19:40 | NUR ---
RECEIVED REPORT, WILL ASSUME CARE OF PT, PT VISITING WITH FAMILY, DENIES ANY NEEDS, BED IS LOW, SRX2, CALL LIGHT IN REACH, WILL CONTINUE PLAN OF CARE
--- NOTE | 2017-02-07 05:08 | NUR ---
ASSESSMENT COMPLETE, PT SLEEPING, GRANDDAUGHTER AT BEDSIDE, BED IS LOW, SRX2, CALL LIGHT IN REACH
[2017-02-07 05:20] VITALS: BP 189/99
--- NOTE | 2017-02-07 07:29 | NUR ---
AM ROUNDING- RECEIVED REPORT FROM PACKAGE REINSPECTOR NURSE SARA. PT IS CURRENTLY LAYING IN BED WITH EYES CLOSED RESTING. ON ROOM AIR. NO MONITOR. IV SEEN TO LEFT UPPER ARM MIDLINE WITH NS RUNNING AT 100CC. RESERVE RIGHT ARM FOR LUMP PER REPORT. NO NEED AT THIS CURRENT TIME. WILL CONTINUE TO MONITOR AND CONTINUE WITH PLAN OF CARE.
[2017-02-07 08:23] VITALS: BP 197/97
--- NOTE | 2017-02-07 11:33 | NUR ---
PT IS CURRENTLY SITTING UP IN BED WITH EYES OPEN RESTING. PT IS C/O OF NAUSEA AND IS REQUESTING ZOFRAN. THIS NURSE GIVES PT ZOFRAN ORDERED. NO FURTHER NEED AT THIS TIME. WILL CONTINUE TO MONITOR.
[2017-02-07 11:55] VITALS: BP 184/88
--- NOTE | 2017-02-07 13:30 | NUR ---
Nutrition follow-up: Diet: Regular PO intake ~75% average at meals Labs reviewed Wt: 228# +BM Pt still with some nausea. RDN following.
[2017-02-07 15:53] VITALS: BP 164/81
--- NOTE | 2017-02-07 15:59 | NUR ---
CONSENTS SIGNED FOR PROCEDURE AND PLACED IN CHART. PT IS AWARE TO NOT EAT OR DRINK ANYTHING AFTER MIDNIGHT TONIGHT. NPO SIGN PLACED ON PTS DOOR.
[2017-02-07 16:59] LABS: APPEARANCE CLEAR (CLEAR); BILIRUBIN NEGATIVE (NEGATIVE); COLOR YELLOW (YELLOW); GLUCOSE NEGATIVE (NEGATIVE); KETONE NEGATIVE (NEGATIVE); NITRITE NEGATIVE (NEGATIVE); PROTEIN NEGATIVE (NEGATIVE); UROBILINOGEN NORMAL (NORMAL)
[2017-02-07 17:01] LABS: RED CELLS - URINE OCC /hpf (0-5); WHITE CELLS - URINE 0-5 /hpf (0-5)
--- NOTE | 2017-02-07 18:23 | NUR ---
PT IS CURRENTLY SITTING UP IN BED WITH EYES OPEN RESTING FINISHING UP DINNER. GUEST IS AT BEDSIDE. PT IS AWARE TO BE NPO AFTER MIDNIGHT TONIGHT FOR PROCEDURE TOMORROW. NO NEED AT THIS TIME. WILL CONTINUE TO MONITOR.
[2017-02-07 19:00] VITALS: BP 168/68
--- NOTE | 2017-02-07 19:38 | NUR ---
RECEIVED REPORT, WILL ASSUME CARE OF PT, BED IS LOW, SRX2, CALL LIGHT IN REACH, WILL CONTINUE PLAN OF CARE
[2017-02-08] VITALS: BP 163/82
[2017-02-08 04:00] VITALS: BP 155/81
[2017-02-08 05:57] LABS: BASOPHILS 0.7 % (0-2); EOSINOPHILS 2.3 % (0-7); HEMATOCRIT 27.8 % (36.0-48.0); HEMOGLOBIN 8.8 g/dL (12-16); IMMATURE GRANULOCYTES 0.3 % (0-5); LYMPHOCYTES 26.3 % (15-50); MCH 29.1 pg (26.0-34.0); MCHC 31.7 g/dL (31.0-37.0); MCV 92.1 fL (80.0-100.0); MEAN PLATELET VOLUME 9.4 fL (7.4-10.4); MONOCYTES 10.1 % (2-11); NEUTROPHILS 60.3 % (40-80); RBC 3.02 10x6/uL (4.00-5.40); RDW 16.8 % (11.5-14.5)
[2017-02-08 06:12] LABS: PLATELET COUNT 380 10x3/uL (130-400)
[2017-02-08 06:22] LABS: CALC OSMOLALITY 283 mosm/kg (275-300); CALCIUM 8.8 mg/dL (8.5-10.1); CARBON DIOXIDE 31.1 mmol/L (21.0-32.0); CHLORIDE - SERUM 105 mmol/L (98-107); CREATININE - SERUM 0.8 mg/dL (0.6-1.3); GLUCOSE 101 mg/dL (74-106); POTASSIUM - SERUM 3.6 mmol/L (3.5-5.1); SODIUM 143 mmol/L (136-145); UREA NITROGEN 9 mg/dL (7-18); eGFR NON AFRICAN AMERICAN 76 mL/min (90-120)
--- NOTE | 2017-02-08 07:20 | NUR ---
AM ROUNDING- RECEIVED REPORT FROM DRY CHARGE PROCESS ATTENDANT NURSE SARA. PT IS CURRENTLY LAYING IN BED WITH EYES CLOSED RESTING. NPO CURRENTLY FOR PROCEDURE TODAY. CONSENTS ARE SIGNED AND IN CHART. ON ROOM AIR. NO MONITOR. IV SEEN TO LEFT UPPER ARM PICC THAT IS CURRENTLY SALINE LOCKED. NO NEED AT THIS CURRENT TIME. WILL CONTINUE TO MONITOR AND CONTINUE WITH PLAN OF CARE.
[2017-02-08 08:35] VITALS: BP 162/79
--- NOTE | 2017-02-08 10:09 | NUR ---
PT C/O 11/18 PAIN FROM "LEFT FLANK" AREA. PT GIVEN DILAUDID PRN ORDERED FOR PAIN. DARRELL MENDEZ AND I WASTED 1MG OF DILAUDID IN PYXIS. NO FURTHER NEED AT THIS TIME. WILL CONTINUE TO MONITOR.
--- NOTE | 2017-02-08 11:52 | NUR ---
DR. DENIS OFFICE CALLED TO INFORM HIM ABOUT PTS LAST BLOOD PRESSURE (193/101). WILL AWAIT ANSWER AND CONTINUE TO MONITOR.
--- NOTE | 2017-02-08 11:55 | NUR ---
VOICEMAIL LEFT FOR DR. DENIS OFFICE (NO ANSWER). WILL TRY TO CALL OFFICE AGAIN.
--- NOTE | 2017-02-08 12:00 | NUR ---
RECEIVED CALLBACK FROM DR. DENIS OFFICE AND SPOKE WITH DR. LARA. INFORMED DR. LARA THAT PTS LAST BLOOD PRESSURE IS 193/101. DR. LARA STATES TO TAKE SHANNON BLOOD PRESSURE AND WATCH PTS BLOOD PRESSURE AND IF STAYS HIGH CALL HIS CELL FOR FURTHER ORDERS. WILL CONTINUE TO MONITOR.
[2017-02-08 12:02] VITALS: BP 193/101
--- NOTE | 2017-02-08 13:29 | NUR ---
SHANNON BLOOD PRESSURE CHECKED BY GUEST REQUEST RUNNER. BLOOD PRESSURE IS 185/100. WILL FOLLOW ORDERS PER DR. DENIS NURSING MESSAGE.
--- NOTE | 2017-02-08 14:06 | NUR ---
PRE-OP MEDICATIONS GIVEN DIRECTED. IV FLUIDS HUNG AND TUBING PRIMED. GI LAB HERE TO GET PT NOW.
--- NOTE | 2017-02-08 14:07 | NUR ---
PT TO GI LAB VIA BED.
--- NOTE | 2017-02-08 15:33 | NUR ---
PT BACK FROM GI LAB VIA BED. PT IS ALERT AND ORIENTED. VITAL SIGNS ARE BEING TAKEN. PT IS REQUESTING SOMETHING FOR PAIN AT THIS TIME. WILL TX WITH PRN ORDERED AND CONTINUE TO MONITOR.
--- NOTE | 2017-02-08 18:34 | NUR ---
PT IS CURRENTLY SITTING UP IN BED WITH EYES OPEN RESTING. PT DENIES ANY NEED AT THIS TIME. WILL CONTINUE TO MONITOR.
--- NOTE | 2017-02-08 19:05 | NUR ---
PT SITTING UP IN BED USING CELL PHONE. DENIES NEEDS AT THIS TIME. WILL CONTINUE TO MONITOR.
[2017-02-08 21:28] VITALS: BP 167/80
--- NOTE | 2017-02-08 23:31 | NUR ---
PT IN BED RESTING QUIETLY. BED IN LOW POSITION, CALL LIGHT WITHIN REACH. WILL CPOC.
[2017-02-09 01:06] VITALS: BP 161/81
[2017-02-09 04:38] VITALS: BP 172/90
--- NOTE | 2017-02-09 07:47 | NUR ---
REPORT RECEIVED. RR EVEN AND UNLABORED. PT DENIES NEEDS AT THIS TIME. PT IS ALERT AND ORIENTED X4. DISCUSSED POSSIBLE D/C TODAY. PT VERBALIZED UNDERSTANDING. WILL CTM.
[2017-02-09 08:34] VITALS: BP 153/89
--- NOTE | 2017-02-09 10:01 | NUR ---
Patient Name: SHERRON TOM Admission Status: Urgent Accout number: [id number] Admission Date: 02-02-2017 : 1950 Admission Diagnosis:UNSPECIFIED ABDOMINAL PAIN Attending: MARCO A LARA Current LOS: 7 Anticipated DC Date: 02-09-2017 Planned Disposition: Home Primary Insurance: MEDICARE A & B Discharge Planning Comments: * Is the patient Alert and Oriented? Yes 0 * How many steps to enter\exit or inside your home? NONE 0 * PCP DR. LARA 0 * Pharmacy [facility] IN [place] 0 * Preadmission Environment Home with Family 0 * ADLs Independent 0 * Equipment Bedside Commode Cane Enteral Feeding and Supplies Rolling Walker Walker 0 * Other Equipment NO MEDICAL EQUIPMENT PROVIDER PREFERENCE 0 * List name and contact numbers for known caregivers / representatives who currently or will assist patient after discharge: [employer] [facility], GRANDDAUGHTER, 0 * Community resources currently utilized None 0 * Please name any agencies selected above. NONE 0 * Additional services required to return to the preadmission environment? No 0 * Can the patient safely return to the preadmission environment? Yes 0 * Has this patient been hospitalized within the prior 30 days at any hospital? Yes 0 CM RECEIVED DISCHARGE ORDER, MET WITH PT IN ROOM TO DISCUSS DISCHARGE PLANNING AND NEEDS. PT REPORTS LIVING AT HOME INDEPENDENTLY WITH ADULT GRANDDAUGHTER WHO LIVES WITH PT AND IS AVAILABLE TO ASSIST PT IF NEEDED. PT HAS ALL NEEDED MEDICAL EQUIPMENT WITH NO MEDICAL EQUIPMENT PROVIDER PREFERENCE. PT HAS NO OUTSIDE SERVICES ASSISTING IN THE HOME. CM DISCUSSED AVAILABILITY OF HOME HEALTH, REHAB SERVICES AND MEDICAL EQUIPMENT. PT DENIES DISCHARGE NEEDS, REPORTS HER GRANDDAUGHTER WILL PICK HER UP FOR DISCHARGE HOME. IMPORTANT MESSAGE FROM MEDICARE PROVIDED AND EXPLAINED. Book Retailer: Jenaro Rucker
--- NOTE | 2017-02-09 11:00 | NUR ---
PT DISCHARGED. D/C INSTRUCTIONS PROVIDED, PT VERBALIZED UNDERSTANDING. C-DIFF TEACHING COMPLETED AND COPY GIVEN. CALLED FOR PICC LINE REMOVAL ORDER, FRANKLIN JIMENEZ NURSE CRIMINAL ATTORNEY WILL REMOVED PICC PER POLICY. PT DENIES FURTHER QUESTIONS AND NEEDS. WILL CTM UNTIL D/C.
--- NOTE | 2017-02-09 13:47 | NUR ---
PRIOR TO DISCHARGE- ORDER RECEIVED FOR PICC LINE REMOVAL. VERIFIED THAT PICC LINE IS 41 CMS IN LENGTH AND IN LEFT AC. FROM VASCULAR ACCESS NURSE INSERTION NOTES. PT IS IN SUPINE POSITION WITH L ARM EXTENDED 45 DEGREES OUT. DRESSING REMOVED. SITE HAS NO SIGNS OF INFECTION. NO SUTURES PRESENT. SITE CLEANED WITH CHLORAPREP. BIO GUARD REMOVED. CATH GENTLY WITHDRAWN ONE INCH INCREMENETS AT A TIME. PT TAKING A DEEP BREATH AND BEAR DOWN. CATH REMOVED SUCCESSFULLY OF 41 CMS. PRESSURE GUAZE HELD FOR 5 MINUTES. ANTIMICROBIAL OINTMENT APPLIED THEN CLEAN GUAZE AND TEGADERM APPLIED. PT AND FAMILY INSTRUCTED ABOUT SIGNS OF INFECTION, DRESSING REMOVAL. BOTH VERBALIZE UNDERSTANDING.
== END 2017-02-09 13:30 | disposition home or self-care (01) | DRG 373 ==
LOC: D.M2 14:27
PROVIDERS: Internal Medicine Gastroenterology; Student in an Organized Health Care Education/Training Program; ADMIT Family Medicine
PROC: 02HV33Z Insertion of Infusion Device into Superior Vena Cava, Percutaneous Approach (ICD-10-PCS; 2017-02-02)
PROC: B548ZZA Ultrasonography of Superior Vena Cava, Guidance (ICD-10-PCS; 2017-02-02)
PROC: 0DBN8ZX Excision of Sigmoid Colon, Via Natural or Artificial Opening Endoscopic, Diagnostic (ICD-10-PCS; principal; 2017-02-04 13:00)
PROC: 3E0G8GC Introduction of Other Therapeutic Substance into Upper GI, Via Natural or Artificial Opening Endoscopic (ICD-10-PCS; 2017-02-08)
DX: A04.71 Enterocolitis due to Clostridium difficile, recurrent (principal); E86.0 Dehydration; I10 Essential (primary) hypertension; D64.9 Anemia, unspecified; M54.5 Low back pain; K57.90 Diverticulosis of intestine, part unspecified, without perforation or abscess without bleeding; K64.4 Residual hemorrhoidal skin tags; Z86.73 Personal history of transient ischemic attack (TIA), and cerebral infarction without residual deficits

== ENCOUNTER → 2017-08-11 10:31 | Outpatient (CLI) | payer MEDICARE, OTHER | END | disposition home or self-care (01) | LOC: D.CT 10:30 | DX: R93.8 Abnormal findings on diagnostic imaging of other specified body structures (principal) ==

== ENCOUNTER 2018-01-09 18:16 | Emergency (ER) | payer MEDICARE ==
[~2018-01-09] VITALS: Ht 160 cm; Wt 104.5 kg
[2018-01-09 18:19] VITALS: Ht 160 cm; Wt 104.5 kg
[2018-01-09 18:54] LABS: BASOPHILS 0.3 % (0-2); EOSINOPHILS 1.2 % (0-7); HEMATOCRIT 39.3 % (36.0-48.0); HEMOGLOBIN 13.6 g/dL (12-16); IMMATURE GRANULOCYTES 0.1 % (0-5); LYMPHOCYTES 30.4 % (15-50); MCH 32.3 pg (26.0-34.0); MCHC 34.6 g/dL (31.0-37.0); MCV 93.3 fL (80.0-100.0); MEAN PLATELET VOLUME 9.9 fL (7.4-10.4); MONOCYTES 7.3 % (2-11); NEUTROPHILS 60.7 % (40-80); PLATELET COUNT 338 10x3/uL (130-400); RBC 4.21 10x6/uL (4.00-5.40); RDW 12.8 % (11.5-14.5)
[2018-01-09 19:19] LABS: ALBUMIN 3.8 g/dL (3.4-5.0); ANION GAP 12.6 mmol/L (8-16); BILIRUBIN - TOTAL 0.31 mg/dL (0.2-1.3); CALCIUM 10.1 mg/dL (8.5-10.1); CARBON DIOXIDE 31.7 mmol/L (21.0-32.0); CREATININE - SERUM 0.9 mg/dL (0.6-1.3); POTASSIUM - SERUM 3.3 mmol/L (3.5-5.1); PROTEIN - SERUM 8.7 g/dL (6.4-8.2)
[2018-01-09 20:03] LABS: APPEARANCE CLEAR (CLEAR); BACTERIA FEW /hpf (NONE SEEN); BILIRUBIN NEGATIVE (NEGATIVE); COLOR YELLOW (YELLOW); EPITHELIAL CELLS 0-5 /hpf (0-5); GLUCOSE NEGATIVE (NEGATIVE); KETONE NEGATIVE (NEGATIVE); NITRITE NEGATIVE (NEGATIVE); PROTEIN NEGATIVE (NEGATIVE); RED CELLS - URINE OCC /hpf (0-5); SPECIFIC GRAVITY 1.015 (1.005-1.020); UROBILINOGEN NORMAL (NORMAL); WHITE CELLS - URINE 0-5 /hpf (0-5)
[2018-01-09] MEDS ORDERED: ZOFRAN4 MG PO (21:50)
[2018-01-09 22:07] VITALS: BP 169/59
== END 2018-01-09 22:08 | disposition home or self-care (01) ==
LOC: D.ER 18:16
PROVIDERS: Family Medicine
DX: R19.7 Diarrhea, unspecified (principal); R10.9 Unspecified abdominal pain; E87.6 Hypokalemia; Z86.73 Personal history of transient ischemic attack (TIA), and cerebral infarction without residual deficits; I10 Essential (primary) hypertension

== ENCOUNTER 2018-02-13 21:10 | Emergency (ER) | payer MEDICARE ==
[~2018-02-13] VITALS: Ht 160 cm; Wt 106.8 kg
[~2018-02-13 21:10] MED LIST changes: +ZOFRAN4 MG PO
[2018-02-13 21:26] VITALS: Ht 160 cm; Wt 106.8 kg
[2018-02-13] MEDS ORDERED: TYLENOL #4 W/CO1 TAB PO (21:27)
[2018-02-13 22:55] LABS: BASOPHILS 0.4 % (0-2); EOSINOPHILS 1.6 % (0-7); HEMATOCRIT 38.5 % (36.0-48.0); HEMOGLOBIN 13.2 g/dL (12-16); IMMATURE GRANULOCYTES 0.3 % (0-5); LYMPHOCYTES 31.2 % (15-50); MCH 32.1 pg (26.0-34.0); MCHC 34.3 g/dL (31.0-37.0); MCV 93.7 fL (80.0-100.0); MEAN PLATELET VOLUME 9.8 fL (7.4-10.4); MONOCYTES 6.9 % (2-11); NEUTROPHILS 59.6 % (40-80); PLATELET COUNT 298 10x3/uL (130-400); RBC 4.11 10x6/uL (4.00-5.40); RDW 12.9 % (11.5-14.5); WBC 7.9 10x3/uL (4.8-10.8)
[2018-02-13 23:06] LABS: ALBUMIN 3.5 g/dL (3.4-5.0); ANION GAP 13.8 mmol/L (8-16); BILIRUBIN - TOTAL 0.21 mg/dL (0.2-1.3); CALCIUM 9.4 mg/dL (8.5-10.1); CARBON DIOXIDE 28.2 mmol/L (21.0-32.0); CREATININE - SERUM 0.9 mg/dL (0.6-1.3); PROTEIN - SERUM 8.3 g/dL (6.4-8.2)
[2018-02-14] MEDS ORDERED: ZPAK PO (00:07)
[2018-02-14 00:30] VITALS: BP 142/68
== END 2018-02-14 00:27 | disposition home or self-care (01) ==
LOC: D.ER 21:10
PROVIDERS: Family Medicine
DX: J06.9 Acute upper respiratory infection, unspecified (principal); R09.89 Other specified symptoms and signs involving the circulatory and respiratory systems; Z86.73 Personal history of transient ischemic attack (TIA), and cerebral infarction without residual deficits; I10 Essential (primary) hypertension

== ENCOUNTER → 2018-11-18 16:05 | Outpatient (CLI) | payer MEDICARE ==
[2018-02-13 21:26] VITALS: BMI 41.7
[~2018-11-18 16:05] MED LIST changes: +DECADRON4 MG PO; +DOLOMITE PO; +HYDROCODON-ACE1 EA10 PO; +OMEPRAZOLE CAP 20M; +ZANAFLEX4 MG PO; +ZOFRAN ODT4 MG/UDTAB; +ZPAK PO; +ZYLOPRIM100 MG PO; +[UNRECOGNIZED DRUG - OTHER] PO; +[UNRECOGNIZED DRUG - OTHER] PO
[2018-11-18 16:20] LABS: BASOPHILS 0.2 % (0-2); EOSINOPHILS 6.1 % (0-7); HEMATOCRIT 26.3 % (36.0-48.0); HEMOGLOBIN 8.9 g/dL (12-16); IMMATURE GRANULOCYTES 0.2 % (0-5); LYMPHOCYTES 23.1 % (15-50); MCH 30.1 pg (26.0-34.0); MCHC 33.8 g/dL (31.0-37.0); MCV 88.9 fL (80.0-100.0); MEAN PLATELET VOLUME 10.1 fL (7.4-10.4); MONOCYTES 6.1 % (2-11); NEUTROPHILS 64.3 % (40-80); PLATELET COUNT 320 10x3/uL (130-400); RBC 2.96 10x6/uL (4.00-5.40); RDW 13.6 % (11.5-14.5); WBC 8.3 10x3/uL (4.8-10.8)
[2018-11-18 16:36] LABS: CREATININE - SERUM 0.7 mg/dL (0.6-1.3)
== END | disposition home or self-care (01) ==
LOC: D.LABREF 16:05
PROVIDERS: ATTEND Surgery
DX: E66.01 Morbid (severe) obesity due to excess calories (principal)

== ENCOUNTER 2018-11-28 09:05 | Inpatient (IN) | payer MEDICARE ==
[~2018-11-28] VITALS: Ht 160 cm; Wt 101.6 kg
[~2018-11-28 09:05] MED LIST changes: -DECADRON4 MG PO; -DOLOMITE PO; -HYDROCODON-ACE1 EA10 PO; -OMEPRAZOLE CAP 20M; -ZANAFLEX4 MG PO; -ZOFRAN ODT4 MG/UDTAB; -ZYLOPRIM100 MG PO; -[UNRECOGNIZED DRUG - OTHER] PO; -[UNRECOGNIZED DRUG - OTHER] PO
[2018-11-28] MEDS ORDERED: ZANAFLEX4 MG PO (09:30)
[2018-11-28 09:47] VITALS: BP 117/65
[2018-11-28 09:59] LABS: BASOPHILS 0.3 % (0-2); EOSINOPHILS 1.4 % (0-7); HEMATOCRIT 28.2 % (36.0-48.0); HEMOGLOBIN 9.3 g/dL (12-16); IMMATURE GRANULOCYTES 0.2 % (0-5); LYMPHOCYTES 13.9 % (15-50); MCH 29.6 pg (26.0-34.0); MCV 89.8 fL (80.0-100.0); MEAN PLATELET VOLUME 9.4 fL (7.4-10.4); MONOCYTES 5.8 % (2-11); NEUTROPHILS 78.4 % (40-80); PLATELET COUNT 369 10x3/uL (130-400); RBC 3.14 10x6/uL (4.00-5.40); RDW 13.9 % (11.5-14.5); WBC 9.8 10x3/uL (4.8-10.8)
[2018-11-28 10:14] LABS: ALBUMIN 2.9 g/dL (3.4-5.0); ALKALINE PHOSPHATASE 93 U/L (46-116); ALT (SGPT) 10 U/L (10-68); BILIRUBIN - TOTAL 0.36 mg/dL (0.2-1.3); CALC OSMOLALITY 274 mosm/kg (275-300); CALCIUM 9.3 mg/dL (8.5-10.1); CHLORIDE - SERUM 102 mmol/L (98-107); CREATININE - SERUM 0.9 mg/dL (0.6-1.3); GLUCOSE 112 mg/dL (74-106); POTASSIUM - SERUM 3.9 mmol/L (3.5-5.1); PROTEIN - SERUM 7.3 g/dL (6.4-8.2); SODIUM 136 mmol/L (136-145); UREA NITROGEN 19 mg/dL (7-18); eGFR NON AFRICAN AMERICAN 67 mL/min (90-120)
[2018-11-28 10:25] LABS: CKMB 0.1 U/L (0.0-3.6); CREATINE KINASE 34 UL (21-215)
[2018-11-28 10:26] LABS: TROPONIN-I < 0.017 ng/mL (0.000-0.060)
[2018-11-28 13:42] LABS: CKMB 0.1 U/L (0.0-3.6); CREATINE KINASE 35 UL (21-215); TROPONIN-I < 0.017 ng/mL (0.000-0.060)
[2018-11-28 14:00] VITALS: BP 132/60
[2018-11-28 16:00] VITALS: BP 147/57
--- NOTE | 2018-11-28 16:41 | NUR ---
PATENT SENT TO MRI VIA WHEELCHAIR AND PACK CHANGER.
[2018-11-28 17:34] VITALS: BP 132/66
--- NOTE | 2018-11-28 18:03 | NUR ---
PATIENT DELIVERED TO ROOM 2139 WITHOUT INCIDENT. PATIENT TOLERATED WELL. BEDSIDE REPORT AND HANDOFF GIVEN TO DARRELL JOSHI AFTER 2 PHONE CALLS AND WAITING GREATER THAN 15 MINS TO REPORT TO NURSE ASSUMING CARE.
[2018-11-28] MEDS ORDERED: OMEPRAZOLE CAP 20M (18:24)
[2018-11-28] MEDS ORDERED: ZOFRAN ODT4 MG/UDTAB (18:24)
[2018-11-28] MEDS ORDERED: ZYLOPRIM100 MG PO (18:27)
[2018-11-28] MEDS ORDERED: DOLOMITE PO (18:33)
[2018-11-28] MEDS ORDERED: [UNRECOGNIZED DRUG - OTHER] PO (18:36)
[2018-11-28] MEDS ORDERED: [UNRECOGNIZED DRUG - OTHER] PO (18:40)
--- NOTE | 2018-11-28 18:42 | NUR ---
1805 ARRIVED FROM ER VIA WC REPORT PROVIDED AT BEDSIDE 1830 INITIATED QUICK START AND MED REC COMPLETED
--- NOTE | 2018-11-28 19:00 | NUR ---
PATIENT SITTING UP TO SIDE OF BED. PATIENT'S ONLY COMPLAINT IS NOT BEING ABLE TO EAT HER DINNER TRAY. PATIENT STATES SHE HAD A GASTRIC SLEEVE 2 WEEKS AGO AND IS ONLY ABLE TO HAVE A FULL LIQUID DIET. PATIENT GIVEN BROTH, JELLO AND ICE CREAM FOR MEAL REPLACEMENT. PATIENT WITH NO OTHER COMPLAINTS AT THIS TIME. NO DISTRESS NOTED.
[2018-11-28 19:34] LABS: CKMB 0.2 U/L (0.0-3.6); CREATINE KINASE 37 UL (21-215); TROPONIN-I < 0.017 ng/mL (0.000-0.060)
[2018-11-28 20:00] VITALS: BP 176/94
[2018-11-29] VITALS (7 sets, daily range): BP systolic 115–152; BP diastolic 48–71; Ht 160 cm; Wt 101.6 kg
[2018-11-29 01:32] LABS: CKMB 0.4 U/L (0.0-3.6); CREATINE KINASE 40 UL (21-215)
[2018-11-29 01:44] LABS: TROPONIN-I < 0.017 ng/mL (0.000-0.060)
--- NOTE | 2018-11-29 02:01 | NUR ---
PATIENT SITTING UP IN BED. PATIENT HAS NO COMPLAINTS AT THIS TIME. NO DISTRESS NOTED.
[2018-11-29 04:53] LABS: BASOPHILS 0 % (0-2); EOSINOPHILS 0 % (0-7); HEMATOCRIT 30.5 % (36.0-48.0); IMMATURE GRANULOCYTES 0.1 % (0-5); LYMPHOCYTES 8.5 % (15-50); MCH 29.6 pg (26.0-34.0); MCHC 32.8 g/dL (31.0-37.0); MCV 90.2 fL (80.0-100.0); MONOCYTES 0.7 % (2-11); NEUTROPHILS 90.7 % (40-80); PLATELET COUNT 436 10x3/uL (130-400); RBC 3.38 10x6/uL (4.00-5.40); RDW 13.7 % (11.5-14.5); WBC 8.6 10x3/uL (4.8-10.8)
[2018-11-29 05:03] LABS: ALBUMIN 2.9 g/dL (3.4-5.0); ANION GAP 12.5 mmol/L (8-16); BILIRUBIN - TOTAL 0.3 mg/dL (0.2-1.3); CALCIUM 9.1 mg/dL (8.5-10.1); CARBON DIOXIDE 27.6 mmol/L (21.0-32.0); CREATININE - SERUM 0.9 mg/dL (0.6-1.3); MAGNESIUM - SERUM 2.2 mg/dL (1.8-2.4); POTASSIUM - SERUM 4.1 mmol/L (3.5-5.1); PROTEIN - SERUM 8.2 g/dL (6.4-8.2)
--- NOTE | 2018-11-29 07:10 | NUR ---
REPORT RECEIVED FROM SILVERING APPLICATOR AND PATIENT CARE ASSUMED. PATIENT LAYING IN BED ON BACK WITH EYES CLOSED AND BREATHING EVENLY. WILL CONTINUE WITH PLAN OF CARE. SR UP X 2 BED IN LOW POSITION AND CALL LIGHT IN REACH.
--- NOTE | 2018-11-29 11:12 | NUR ---
PATIENT SITTING UP IN BS CHAIR. PATIENT IS STABLE AND VSS. PATIENT DENIES ANY NEEDS OR PAIN. PATIENT ASSESSMENT COMPLETED. WILL CONTINUE TO MONITOR. CALL LIGHT IN REACH.
--- NOTE | 2018-11-29 23:30 | NUR ---
PT RESTING IN BED. EYES CLOSED. NO SIGNS OF DISTRESS. BREATHING EVEN AND UNLABORED. IV SITE RT AC SL DRESSING CLEAN DRY AND INTACT. NO SIGNS OF INFECTION. BOWEL SOUNDS ACTIVE. NO LOWER LEG SWELLING PRESENT. WILL CONTINUE PLAN OF CARE. CALL LIGHT IN REACH. BED LOWERED AND LOCKED. BED RAILS UPX1.
[2018-11-30] VITALS: BP 104/61
[2018-11-30 04:00] VITALS: BP 161/78
--- NOTE | 2018-11-30 06:08 | NUR ---
I have reviewed this patient and I concur with the Shift Assessment completed by the Licensed Practical Nurse today this shift.
[2018-11-30 06:10] LABS: BASOPHILS 0 % (0-2); EOSINOPHILS 0 % (0-7); HEMATOCRIT 30.3 % (36.0-48.0); HEMOGLOBIN 10.2 g/dL (12-16); IMMATURE GRANULOCYTES 0.2 % (0-5); LYMPHOCYTES 5.7 % (15-50); MCH 30.4 pg (26.0-34.0); MCHC 33.7 g/dL (31.0-37.0); MCV 90.2 fL (80.0-100.0); MEAN PLATELET VOLUME 9.6 fL (7.4-10.4); MONOCYTES 1.6 % (2-11); NEUTROPHILS 92.5 % (40-80); PLATELET COUNT 493 10x3/uL (130-400); RBC 3.36 10x6/uL (4.00-5.40)
[2018-11-30 06:39] LABS: ALBUMIN 3.1 g/dL (3.4-5.0); ANION GAP 10.9 mmol/L (8-16); BILIRUBIN - TOTAL 0.25 mg/dL (0.2-1.3); CALCIUM 9.4 mg/dL (8.5-10.1); CARBON DIOXIDE 29.2 mmol/L (21.0-32.0); MAGNESIUM - SERUM 2.2 mg/dL (1.8-2.4); POTASSIUM - SERUM 4.1 mmol/L (3.5-5.1); PROTEIN - SERUM 8.1 g/dL (6.4-8.2)
[2018-11-30 08:25] VITALS: BP 125/49
[2018-11-30 11:33] VITALS: BP 122/50
[2018-11-30 14:03] LABS: APPEARANCE CLEAR (CLEAR); COLOR STRAW (YELLOW)
[2018-11-30 14:04] LABS: BILIRUBIN NEGATIVE (NEGATIVE); GLUCOSE NEGATIVE (NEGATIVE); KETONE NEGATIVE (NEGATIVE); NITRITE NEGATIVE (NEGATIVE); PROTEIN NEGATIVE (NEGATIVE); UROBILINOGEN NORMAL (NORMAL)
[2018-11-30 14:51] VITALS: BP 131/52
--- NOTE | 2018-11-30 15:24 | NUR ---
Nutrition Follow-up: Spoke with Samantha KELLEY, as well as bariatric dietitian at [facility] re: pt's post-operative sleeve gastrectomy diet. Pt will receive pureed diet; 1/4 cup max at each meal (oatmeal, cream of wheat, eggs, or mashed potatoes), Ensure BID, as well appropriate snacks between meals (sugar-free jello, popsicles, etc). Plan also reviewed with pt. RD following.
--- NOTE | 2018-11-30 15:37 | NUR ---
I have reviewed this patient and I concur with the Shift Assessment completed by the Licensed Practical Nurse today this shift.
[2018-11-30] MEDS ORDERED: HYDROCODON-ACE1 EA10 PO (16:01)
[2018-11-30] MEDS ORDERED: DECADRON4 MG PO (16:03)
--- NOTE | 2018-11-30 17:52 | NUR ---
RECEIVED A/A/OX4. NO COMPLAINTS AT PRESENT TIME AND VOICES NO REQUESTS. STATES PAIN IS AT A TOLERABLE LEVEL AT THIS TIME. ASSESSMENT COMPLETED AND WILL CONTINUE POC.
--- NOTE | 2018-11-30 19:17 | NUR ---
DISCHARGE INSTRUCTIONS REVIEWED WITH PT AND VERBALIZES UNDERSTANDING WITH NO QUESTIONS. PRESCRIPTION GIVEN FOR [place]CO. SL REMOVED FROM RIGHT AC WITH CATH TIP INTACT. LEFT FLOOR VIA W/C WITH ALL PERSONAL BELONGINGS AND LEFT FACILITY VIA PRIVATE VEHICLE WITH A FRIEND.
--- NOTE | 2018-12-01 09:19 | MORECARE ---
CASE MANAGEMENT DISCHARGE SUMMARY PATIENT: SHERRON TOM UNIT: [id number] ADM DATE: 11/29/18 AGE: 67 : 52 SEX: F ROOM/BED: D.2136 AUTHOR: LAWRENCE LOVELL PHYSICIAN: REFERRING PHYSICIAN: LINDSEY AHN MD DATE OF SERVICE: 12/01/18 Discharge Plan Patient Name: SHERRON TOM Facility: [facility]:[place] : 1950 Planned Disposition: Home Anticipated Discharge Date: 11/30/18 Discharge Date: 11/30/2018 Expected LOS: 1 Initial Reviewer: [email or web address] Initial Review Date: 12/01/2018 Generated: 12/01/18 10:19 am Coverage Notice Reviewer: [email or web address] Latoya Christian Notice Issued Date-Time: 11/29/2018 12:02 Notice Type: Medicare Outpatient Observation Notice Notice Delivered To: Patient Relationship to Patient: Self Electronic Security Specialist Name: Delivery Method: HAND - Hand Delivered Nara Days: Prior Verbal Notification: Recipient Understood Notice: Yes Recipient Signature: Yes Med Rec Note Co-signed by Attending: Coverage Notice Comment: Patient Name: SHERRON TOM Page [phone] at 0919 All edits/amendments must be made on the electronic document DICTATION DATE: 12/01/18918 SHIP BOSS: CURTIS 12/01/18918 RPT#: [id number] DC DATE:11/30/18 STATUS: DIS IN [place] [id number] [place] [address] END OF REPORT
--- NOTE | 2018-12-04 16:44 | MORECARE ---
CASE MANAGEMENT DISCHARGE SUMMARY PATIENT: SHERRON TOM UNIT: [id number] ADM DATE: 11/29/18 AGE: 68 : 52 SEX: F ROOM/BED: D.2193 AUTHOR: LAWRENCE LOVELL PHYSICIAN: REFERRING PHYSICIAN: LINDSEY AHN MD DATE OF SERVICE: 12/04/18 Discharge Plan Patient Name: SHERRON TOM Facility: [facility]:[place] : 1950 Planned Disposition: Home Anticipated Discharge Date: 11/30/18 Discharge Date: 11/30/2018 Expected LOS: 1 Initial Reviewer: [email or web address] Initial Review Date: 12/01/2018 Generated: 12/04/18 5:44 pm External Providers External Provider: [facility] Next Contact Date: 12/04/2018 Service Request Date: Service Type: Resolution: Reviewer: Comments: Coverage Notice Reviewer: [email or web address] Latoya Christian Notice Issued Date-Time: 11/29/2018 12:02 Notice Type: Medicare Outpatient Observation Notice Notice Delivered To: Patient Relationship to Patient: Self Division Human Resources Manager Name: Delivery Method: HAND - Hand Delivered Nara Days: Prior Verbal Notification: Recipient Understood Notice: Yes Recipient Signature: Yes Med Rec Note Co-signed by Attending: Coverage Notice Comment: Last DP export: 12/01/18 8:19 a Patient Name: SHERRON TOM Page [id number] at 1644 All edits/amendments must be made on the electronic document DICTATION DATE: 12/04/181643 METAL MOULDER'S ASSISTANT: CURTIS 12/04/181643 RPT#: [id number] DC DATE:11/30/18 STATUS: DIS IN [facility] [address] [place] [address] END OF REPORT
--- NOTE | 2018-12-04 16:54 | MORECARE ---
CASE MANAGEMENT DISCHARGE SUMMARY PATIENT: SHERRON TOM UNIT: [id number] ADM DATE: 11/29/18 AGE: 68 : 52 SEX: F ROOM/BED: D.1015 AUTHOR: LAWRENCE LOVELL PHYSICIAN: REFERRING PHYSICIAN: LINDSEY AHN MD DATE OF SERVICE: 12/04/18 Discharge Plan Patient Name: SHERRON TOM Facility: [facility]:[place] : 1950 Planned Disposition: Home Anticipated Discharge Date: 11/30/18 Discharge Date: 11/30/2018 Expected LOS: 1 Initial Reviewer: [id number] Initial Review Date: 12/01/2018 Generated: 12/04/18 5:54 pm Comments DCP- Discharge Planning Updated by [email or web address]: Jenaro Rucker on 12/04/18 3:[address] Patient Name: SHERRON TOM Encounter No: [id number] : 1950 Primary Insurance: MEDICARE A & B Anticipated DC Date: 11-30-2018 Planned Disposition: Home WITH HOME HEALTH External Planned Provider: [facility] DCP follow-up note: CM RECEIVED CALL FROM NAN OF [facility] WHO REPORTS PT HAS CALLED TO HAVE HER HOME HEALTH RESUMED AND REQUESTED HOSPITAL DISCHARGE INFORMATION. CM FAXED REQUESTED INFORMATION TO [place] AT [phone] TO [facility]. Jenaro Rucker, CASE MANAGEMENT Coverage Notice Reviewer: [email or web address] Latoya Chacko Callao Notice Issued Date-Time: 11/29/2018 12:02 Notice Type: Medicare Outpatient Observation Notice Notice Delivered To: Patient Relationship to Patient: Self Miller Supervisor Name: Delivery Method: HAND - Hand Delivered Nara Days: Prior Verbal Notification: Recipient Understood Notice: Yes Recipient Signature: Yes Med Rec Note Co-signed by Attending: Coverage Notice Comment: Last DP export: 12/04/18 3:44 p Patient Name: SHERRON TOM Page [phone] at 4880 All edits/amendments must be made on the electronic document DICTATION DATE: 12/04/181653 CAFETERIA MANAGER: CURTIS 12/04/181653 RPT#: [id number] DC DATE:11/30/18 STATUS: DIS IN [facility] [address] [place] [address] END OF REPORT
--- NOTE | 2018-12-05 15:14 | MORECARE ---
CASE MANAGEMENT DISCHARGE SUMMARY PATIENT: SHERRON TOM UNIT: [id number] ADM DATE: 11/29/18 AGE: 68 : 52 SEX: F ROOM/BED: D.9765 AUTHOR: LAWRENCE LOVELL PHYSICIAN: REFERRING PHYSICIAN: LINDSEY AHN MD DATE OF SERVICE: 12/05/18 Discharge Plan Patient Name: SHERRON TOM Facility: [facility]:[place] : 1950 Planned Disposition: Home Anticipated Discharge Date: 11/30/18 Discharge Date: 11/30/2018 Expected LOS: 1 Initial Reviewer: [email or web address] Initial Review Date: 12/01/2018 Generated: 12/05/18 4:14 pm Comments DCP- Discharge Planning Updated by [email or web address]: Jenaro Rucker on 12/05/18 2:[address] Patient Name: SHERRON TOM Encounter No: [id number] : 1950 Primary Insurance: MEDICARE A & B Anticipated DC Date: 11-30-2018 Planned Disposition: Home WITH HOME HEALTH External Planned Provider: [facility] DCP follow-up note: CM RECEIVED CALL FROM S[facility] [place] [facility] WHO REPORTS PT HAS CALLED TO HAVE HER HOME HEALTH RESUMED AND REQUESTED HOSPITAL DISCHARGE INFORMATION. CM FAXED REQUESTED INFORMATION TO [place] AT [phone] TO [facility]. LYNETTE Cross External Providers [facility] Next Contact Date: 12/05/2018 Service Request Date: Service Type: Resolution: Reviewer: Comments: Coverage Notice Reviewer: [id number] Latoya Christian Notice Issued Date-Time: 11/29/2018 12:02 Notice Type: Medicare Outpatient Observation Notice Notice Delivered To: Patient Relationship to Patient: Self Microfabrication Engineer Manager Name: Delivery Method: HAND - Hand Delivered Nara Days: Prior Verbal Notification: Recipient Understood Notice: Yes Recipient Signature: Yes Med Rec Note Co-signed by Attending: Coverage Notice Comment: Last DP export: 12/04/18 3:54 p Patient Name: SHERRON TOM Page [phone] at 1514 All edits/amendments must be made on the electronic document DICTATION DATE: 12/05/18 1514 CASHIER GREETER: CURTIS 12/05/18 1514 RPT#: [id number] DC DATE:11/30/18 STATUS: DIS IN [address] [place] [address] END OF REPORT
== END 2018-11-30 19:19 | disposition home or self-care (01) | DRG 552 ==
LOC: D.ER 09:05 → D.M2 17:26 → OBSVTIME 17:26 → D.M2 17:26
PROVIDERS: Family Medicine; ADMIT Family Medicine; ATTEND Family Medicine
DX: M50.322 Other cervical disc degeneration at C5-C6 level (principal); M48.02 Spinal stenosis, cervical region; M54.2 Cervicalgia; D64.9 Anemia, unspecified; I10 Essential (primary) hypertension; R07.9 Chest pain, unspecified; M50.222 Other cervical disc displacement at C5-C6 level; Z86.73 Personal history of transient ischemic attack (TIA), and cerebral infarction without residual deficits